=== PATIENT | female | born 1985 | race Caucasian/White ===

== ENCOUNTER 2024-12-24 21:14 | Emergency (ER) | payer BC, SELFPAY ==
[2024-12-24 21:12] VITALS: BP 118/73; PULSE 61; RESP 20; TEMP 37.2; O2SAT 99; BMI 18.8
--- NOTE | 2024-12-24 21:16 | ED_ITS ---
HPI - Allergic Reaction General Chief complaint: Allergic Reaction Stated complaint: s/p anaphylaxis Time Seen by Provider: 12/24/24 21:16 History of Present Illness HPI narrative: Patient is a 39-year-old female no pertinent past medical history is brought in by ambulance for evaluation of allergic reaction. 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 She states that this was at around 4:00 p.m., she states that she chewed 75 mg of Benadryl states that she felt better, states that she was starting to drive up towards and a [place] but states that she started developing hives felt like she was having difficulty breathing so pulled over and went to the nearest fire station, at the fire station she was given famotidine, 2 EpiPens, Decadron this was at around 7:00 p.m.. She states that she now feels completely normal, on my exam there is no hives she has no swelling to her posterior oropharynx she is speaking in full sentences protecting airway. Related Data Previous Rx's ?Medication ?Instructions ?Recorded epinephrine 0.3 mg/0.3 mL 0.3 mg (0.3 mL) IM Q5-15M SD N 12/24/24 injection, auto-injector (EpiPen) anaphylaxis #2 ea famotidine 20 mg tablet (Pepcid) 20 mg PO DAILY 5 days #5 tabs 12/24/24 prednisone 20 mg tablet 20 mg PO BID 5 days #10 tabs 12/24/24 Allergies Allergy/AdvReac Type Severity Reaction Status Date / Time NSAIDS (Non-Steroidal Allergy Verified 12/24/24 21:41 Anti-Inflamma sunflower seed Allergy Verified 12/24/24 21:41 Review of Systems Review of Systems Narrative: General: Status post anaphylaxis, Denies fever, chills, weight loss HEENT: Denies headache, eye drainage, eye irritation, head trauma, sore throat, voice change Cardiovascular: Denies any chest pain, palpitations, tachycardia Respiratory: Denies any shortness of breath, cough, wheeze, stridor GI/: Denies any abdominal pain, nausea, vomiting, diarrhea, bright red blood per rectum, melanotic stools, urinary frequency, urinary retention, dysuria, hematuria MSK: Denies any joint pain, muscle pains, swelling Skin: Denies any rashes, lesions, discoloration Neuro: Denies any headache, lightheadedness, dizziness, fainting, weakness Psych: Denies SI/HI Exam Narrative Exam Narrative: General: Cooperative, well-developed, not in acute distress HEENT: Normocephalic, atraumatic, PERRLA, normal sclera, eyelids normal, patient is speaking in full sentences protecting airway no voice changes no stridor no trismus, uvula is midline Neck: Active full range of motion, atraumatic Chest: Normal to inspection, negative crepitus, no overlying erythema ecchymosis Respiratory: Normal respiratory effort, not in acute respiratory distress, clear to auscultation bilaterally negative cough, wheeze, tachypnea, rhonchi, rales Cardiology: Regular rate rhythm negative gallop, murmur, rubs GI/: No tenderness to palpation, soft, non rigid, normal to inspection, exam deferred MSK: Full active range of motion in all 4 extremities, atraumatic, no tenderness to palpation of any bony prominences Skin: No rashes or lesions noted Neuro: Alert awake oriented x3, moves all 4 extremities spontaneously, cranial nerves intact, able to answer all questions appropriately follows commands appropriately Psych: Cooperative, negative suicidal or homicidal ideations Initial Vital Signs Initial Vital Signs: Vital Signs Temperature 98.9 F 12/24/24 21:12 Pulse Rate 61 12/24/24 21:12 Respiratory Rate 20 12/24/24 21:12 Blood Pressure 118/73 12/24/24 21:12 Pulse Oximetry 99 12/24/24 21:12 Oxygen Delivery Method Room Air 12/24/24 21:12 Course Orders Ordered: ED Orders 12/24/24 21:21 EKG-12 Lead Stat Vital Signs Vital signs: Vital Signs - 8 hr 12/24/24 21:12 12/24/24 21:30 Temperature 98.9 F Pulse Rate 61 61 Respiratory Rate 20 18 Blood Pressure 118/73 108/73 Pulse Oximetry 99 100 Oxygen Delivery Method Room Air Room Air MDM - Allergic Reaction MDM Narrative Medical decision making narrative: 39-year-old female with a 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 Patient states that at around 4:00 p.m. she ate a dish that contains sunflower seed oil, she states that at that time she started feeling itchy throat so took 75 mg of Benadryl, she states that she felt better started heading home towards and a [place] but states that she started developing hives and difficulty breathing so stopped by a fire station there she was given another 50 mg of Benadryl 20 of famotidine, 4 of Decadron, 2 of IM epis, at time of my evaluation patient is completely back to baseline she feels completely normal, she has no hives posterior oropharynx clear without any signs of obstruction. EKG was sinus without any ischemic changes, she was observed here in the emergency department without any abnormalities or reoccurrence, she will be sent home with steroids, Pepcid, EpiPen, and instructed to follow up with primary care in outpatient setting she verbalized understanding and agrees to being discharged home with outpatient follow up Discharge Plan Departure Patient Disposition: Home Clinical Impression: Allergic reaction Activity Restrictions/Additional Instructions: Please follow up with your primary care doctor as needed Please read the discharge instructions sheet carefully and bring all papers to all doctor follow-up visits, as it may contain information that your doctor may want to see. Disease processes change and evolve, if your symptoms worsen or if you develop any new symptoms that are concerning to you please return for evaluation. Your evaluation today does not show any evidence of any life- threatening/serious illnesses requiring admission to the hospital or surgery. Please follow-up with your doctor for re-evaluation in approximately 1 day. Seek immediate medical attention for any worrisome symptoms. *If you do not have a primary care provider please contact the [facility] Resource line at [phone]. They will ask some questions about your medical history and help get you set up with a doctor in the community. Prescriptions: New famotidine [Pepcid] 20 mg tablet 20 mg PO DAILY 5 Days Qty: 5 0RF prednisone 20 mg tablet 20 mg PO BID 5 Days Qty: 10 0RF epinephrine [EpiPen] 0.3 mg/0.3 mL auto-injector 0.3 mg IM Q5-15M PRN (Reason: anaphylaxis) Qty: 2 2RF Rx Instructions: do not exceed 3 doses per episode Stand Alone Forms: Patient Portal/API
--- NOTE | 2024-12-24 21:22 | EKG_ITS ---
[address] [id number] Test Date: 2024-12-24 Pat Name: Sherice Rm Department: Room: Gender: Female [employer] Supervisor: : [id number] Requested By: Order Number: [id number] Reading MD: Torsten Montes Measurements Intervals [place] Rate: 61 P: 75 GA: 114 QRS: 79 QRSD: 94 T: 50 QT: 450 QTc: 453 Interpretive Statements Normal sinus rhythm with sinus arrhythmia Electronically Signed On 12-26-2024 13:54:21 PDT by Torsten Montes
[2024-12-24 21:30] VITALS: BP 108/73; PULSE 61; RESP 18; O2SAT 100
[2024-12-24 22:00] VITALS: BP 117/75; PULSE 58; RESP 27; O2SAT 100
== END 2024-12-24 22:21 | disposition home or self-care (01) ==
PROVIDERS: Emergency Provider Student in an Organized Health Care Education/Training Program
DX: T78.40XA Allergy, unspecified, initial encounter (principal); L50.9 Urticaria, unspecified; R07.9 Chest pain, unspecified
CPT/HCPCS: 93005; 99281; 99283